=== PATIENT | male | born 1985 | race Caucasian/White ===

== ENCOUNTER 2016-10-05 21:34 | Inpatient (IN) | payer OTHER ==
[~2016-10-05] VITALS: Ht 175.3 cm; Wt 94.0 kg
--- NOTE | ~2016-10-05 | HP ---
Unit #: [id number] #: [id number] Patient: RE BARDALES [id number] [address] [address] [id number] I MR#: [id number] NAME: RE BARDALES ROOM: 570 Age: 31 Sex: M Admission Date: 10/06/2016 : 1985 Attending Physician: Xenia Castaneda M.D. Primary Care Physician: No Primary Care Physician HISTORY AND PHYSICAL CHIEF COMPLAINT Alcohol withdrawal seizures with alcohol withdrawal. HISTORY OF PRESENT ILLNESS This 31-year-old male with a possible heart issue per girlfriend, alcohol abuse, was transferred from [facility] emergency department for alcohol withdrawal seizure and alcohol withdrawal. The patient, himself, is a poor historian. He is still somewhat confused. His girlfriend states that in February he had a seizure. I believe dislocated his arm at that time. Yesterday, he had a seizure, dislocated his arm and went to [facility] emergency department. He was given etomidate to sedate him prior to closed reduction of the left shoulder. The patient had a generalized seizure afterwards. Alcohol level was found to be 39. The patient drinks up to a fifth of alcohol on a daily basis. He then required IV Valium, two doses of IV Ativan, Geodon as well. He was brought to this emergency department where he is in active alcohol withdrawal. Of note, patient was also given Keppra after his seizure. PAST MEDICAL HISTORY 1. Previous seizure x2 or 3 in the past per girlfriend. 2. Some sort of heart issue that was noted during a hospitalization for dislocated jaw, possibly after a seizure. Unknown hospital. We will attempt to get records. FAMILY HISTORY Alzheimer dementia. SOCIAL HISTORY The patient lives with his girlfriend. He, I believe, smokes some tobacco. He drinks up to a fifth daily of alcohol. Except for marijuana, denies other illicit drug use. ALLERGIES None. HOME MEDICATIONS None. REVIEW OF SYSTEMS Difficult to obtain as the patient is a bit confused. PHYSICAL EXAMINATION GENERAL APPEARANCE: Somewhat confused, mildly agitated, 31-year-old male. Unit #: [id number] #: [id number] Patient: RE BARDALES VITAL SIGNS: Prior to transfer, temperature 99.6, pulse 113, blood pressure 146/90, O2 saturation 100% on room air. HEENT: Eyes: PERRLA. Extraocular muscles are intact. Pharynx is benign but patient did bite his tongue earlier. NECK: Supple without adenopathy or thyromegaly. CHEST: Clear. CARDIAC: Slightly tachy S1, S2 without murmur. ABDOMEN: Bowel sounds are present. No hepatosplenomegaly, tenderness or masses. EXTREMITIES: Without clubbing, cyanosis or edema. Pedal pulses are present. NEUROLOGIC: The patient is awake, alert. He seems to be a bit confused, a bit agitated. His cranial nerves are intact. He has equal strength throughout. DIAGNOSTIC STUDIES LABORATORY: Labs prior to transfer: Hematocrit 45.5, normal white count, platelet count. SMA-12: AST 92, ALT 60. Urine tox screen positive for THC. Alcohol level 39. Urinalysis: Specific gravity greater than 1.30, positive protein and ketones. IMAGING: Head CT: No acute disease. CT scan of the abdomen and pelvis: Fatty infiltration of the liver. Lobulated contour of the liver raising the possibility of cirrhosis. CT scan of the C-spine: DJD noted. No fracture. Left shoulder post reduction shows chronic Hill-Sachs deformity of the superolateral aspect of the humeral head unchanged since 02/2016. Chest x-ray: No acute disease. ASSESSMENT 1. Alcohol withdrawal. 2. Alcohol withdrawal seizure. 3. Some sort of heart issue per the girlfriend. 4. Early cirrhosis noted on CT scan. PLAN 1. IV fluids. 2. Benzodiazepines and vitamins. 3. I will continue Keppra pending EEG. The patient received one dose of Keppra at [facility]. If EEG is negative, would discontinue Keppra. 4. Obtain EKG. 5. Recheck labs. 6. We will obtain old records from patient's previous hospitalization when the girlfriend returns with the name of the hospital where the patient was previously admitted. Dictated by Xenia Castaneda M.D. AML/bd TD: 10/06/2016 07:04 JOB #: [id number] Unit #: [id number] #: [id number] Patient: RE BARDALES HISTORY AND PHYSICAL Page 1 of 1 X Xenia Castaneda MD HISTORY AND PHYSICAL
--- NOTE | ~2016-10-05 | CR6 ---
[facility] A Service of [facility] & [facility] RADIOLOGY TEXT RESULTS PATIENT: RE BARDALES LOCATION: [place] [address] : [birth year] UNIT #: [id number] AGE: [address]: Herve Jain MD SEX: M ORDER DR: [id number] [facility] [address] [facility]. [place], [place] [address] [id number] I MR#: [id number] Acc #: [id number] NAME: RE BARDALES : 1985 SEX: M STUDY DATE/TIME: 10/09/2016 12:11 UNIT: [facility] ROOM: [facility] STUDY DESCRIPTION: CR Abdomen Portable Sng View Attending Physician: Herve Jain M.D. Ordering Physician: Santa Mcdaniel M.D. Primary Care Physician: No Primary Care Physician MEDICAL IMAGING REPORT This report is preliminary unless electronic signature is present EXAM Portable abdomen, 10/09/2016. HISTORY Feeding difficulty abdomen pain since 10/05/2016. Dobbhoff tube placement. FINDINGS The tip of the Dobbhoff tube is located in the gastric fundus directed cephalad. Dictated by... Juan Francisco Loams M.D. THIS IS AN ELECTRONICALLY VERIFIED REPORT Juan Francisco Lomas M.D. at 10/10/2016 6:37 AM KARIN/blade TD: 10/09/2016 16:32 JOB #: [id number] MEDICAL IMAGING REPORT Page 1 of 1 COPY
--- NOTE | ~2016-10-05 | CR63 ---
[facility] A Service of [facility] & [facility] RADIOLOGY TEXT RESULTS PATIENT: RE BARDALES LOCATION: [facility] 303-01 : [birth year] UNIT #: [id number] AGE: [address]: Osvaldo Iglesias MD SEX: M ORDER DR: [id number] [place] [id number] [facility]. [place], [place] [address] [id number] I MR#: [id number] Acc #: [id number] NAME: RE BARDALES : 1985 SEX: M STUDY DATE/TIME: 10/12/2016 16:03 [facility] ROOM: 303 STUDY DESCRIPTION: CR Chest 2 View Attending Physician: Osvaldo Iglesias M.D. Ordering Physician: Osvaldo Iglesias M.D. Primary Care Physician: No Primary Care Physician MEDICAL IMAGING REPORT This report is preliminary unless electronic signature is present EXAM PA and lateral chest, 10/12. INDICATIONS Cough and shortness of air for 4 days. COMPARISON 10/10. FINDINGS PA and lateral views of the chest were obtained. The heart size and vascularity are normal. Lungs are clear. The PIC catheter has its tip in the superior vena cava. Bones are unremarkable. IMPRESSION No active disease. Dictated by... Uriel Stokes M.D. THIS IS AN ELECTRONICALLY VERIFIED REPORT Uriel Stokes M.D. at 10/13/2016 7:21 AM MATT/willis TD: 10/13/2016 06:22 JOB #: [id number] MEDICAL IMAGING REPORT Page 1 of 1 COPY
--- NOTE | ~2016-10-05 | EKG ---
PATIENT: RE BARDALES UNIT #: [id number] Ventricular Rate: 105 BPM Atrial Rate: 105 BPM P-R Interval: 134 ms QRS Duration: 92 ms Q-T Interval: 360 ms QTC Calculation(Bezet): 475 ms P [place]: 48 degrees Calculated R [place]: 10 degrees Calculated T [place]: 4 degrees Diagnosis Line: Sinus tachycardia Diagnosis Line: Voltage criteria for left ventricular hypertrophy Diagnosis Line: Abnormal ECG Diagnosis Line: No previous ECGs available Diagnosis Line: Confirmed by JUAN LEDBETTER MD ([id number]) on Diagnosis Line: 10/07/2016 4:35:05 PM INTERPRETING MD: PRIYANK
--- NOTE | ~2016-10-05 | A ---
[facility] Nutrition Therapy DATE: 10/10/16 Patient: RE HIKCS CATIA Physician: AWILDA Address: [address] [facility] Room/Bed: [address], Zip: [place] [address] Admit Date: 10/06/16 Date of : [birth year] Height: 5 9 Weight: 224 102 NUTRITIONAL ASSESSMENT: REASON: Enteral nutrition diet order Admitting dx: 31 y/o male admitted with ETOH withdrawal seizures PMH: ETOH abuse, ?CAD, dislocated jaw, smoker Anthropometrics: Ht: 69", admission wt: 94.5 kg, current wt: 102 kg, BMI: 30 (stage I obese; based on admission wt) Labs: AST 63 Meds: Thiamine, folic acid, therapeutic formula, Mgso4, Kcl, D5 1/2 NS @ 100 ml/hr, precedex drip, zofran prn, pepcid I/O & Bowel function: Last BM unknown Skin Integrity: No issues, generalized edema noted Estimated Nutrition Needs: 4580-2768 kcals/day (20-25 kcals/kg admission wt) 113-132 g protein/day (1.2-1.4 g/kg admission wt) Fluids consistent with kcal needs or per MD Assessment: Chart reviewed, events noted. See admitting dx and PMH as stated above. Patient has daily ETOH abuse with resulting seizures. CT scan showed early cirrhosis. Patient was transferred to ICU from [facility] on Monday, 10/08. At that time he was on a regular diet. RD currently assessing due to recent DHT placement and EN order (Jevity 1.2 @ 15 ml/hr). DHT placed due to lack of PO intake and worsening mental status with increased lethargy. Patient not appropriate for PO intake at this time. Of note, he has increased nutrient needs in the setting of cirrhosis. He is currently on 2L nasal cannula. See RD recs below, will follow hospital course. Dx: Inadequate protein energy intake r/t nutrition not yet initiated AEB NPO, DHT placement, need for EN. Intervention: EN recs as stated below Monitoring, Evaluation and Goals: 1. EN consistent with estimated nutritional needs (tolerate @ goal rate). 2. Labs WNL. [facility] Nutrition Therapy DATE: 10/10/16 Patient: RE BARDALES Physician: AWILDA Address: [facility] [facility] Room/Bed: [address], Zip: [place] [address] Admit Date: 10/06/16 Date of : [birth year] Height: 5 9 Weight: 224 102 3. Promote regular GI fx. Monitor: per protocol, criteria to determine if above goals met Recommendations: 1. Once medically feasible start enteral nutrition with Jevity 1.5 @ 20 ml/hr and increase by 10 ml q 6 hours until goal rate of 65 ml/hr is reached. Please order 30 ml Prostat daily to be given via tube. This nutrition regimen will provide 1590 ml, 2440 kcals, 115 g protein and 1186 ml water. Add free water flushes per MD once at goal rate and hold liquids IVF. 2. PO diet per [employer] once appropriate with no other dietary restrictions. 3. Daily weights. RD will follow Moderate-severe nutrition risk Respectfully, Gely Devine, TARIK, LD [employer] cc: client file
--- NOTE | ~2016-10-05 | CR72 ---
[facility] A Service of [facility] RADIOLOGY TEXT RESULTS PATIENT: RE BARDALES LOCATION: [address] : [birth year] UNIT #: [id number] AGE: [address]: Osvaldo Iglesias MD SEX: M ORDER DR: [id number] [place] [address] [place], [place] [address] [id number] I MR#: [id number] Acc #: [id number] NAME: RE BARDALES : 1985 SEX: M STUDY DATE/TIME: 10/10/2016 0:58 UNIT: [facility] ROOM: [facility] STUDY DESCRIPTION: CR Chest Single View Portable Attending Physician: Osvaldo Iglesias M.D. Ordering Physician: Herve Jain M.D. Primary Care Physician: Primary Care Physician No MEDICAL IMAGING REPORT This report is preliminary unless electronic signature is present EXAM Portable chest INDICATION Dobbhoff tube placement. Shortness of air today. PROCEDURE Frontal view of the chest. COMPARISON 10/09/2016. FINDINGS Tip of the Dobbhoff tube is just inferior to the jhonathan. There is a right approach PICC line that terminates just inside the right atrium. No pneumothorax. IMPRESSION 1. Tip of the Dobbhoff tube just inferior to the jhonathan. 2. Right approach PICC line is just inside the right atrium. Dictated by... Foster Rockwell M.D. THIS IS AN ELECTRONICALLY VERIFIED REPORT Foster Rockwell M.D. at 10/10/2016 10:07 PM BRIGID/gumaro TD: 10/10/2016 07:26 JOB #: [id number] MEDICAL IMAGING REPORT [facility] A Service [facility] RADIOLOGY TEXT RESULTS PATIENT: RE BARDALES LOCATION: [address] : [birth year] UNIT #: [id number] AGE: [address]: Osvaldo Iglesias MD SEX: M ORDER DR: Page 1 of 1 COPY
--- NOTE | ~2016-10-05 | CO ---
Unit #: [id number] #: [id number] Patient: RE BARDALES [id number] [address] [address] [id number] I MR#: [id number] NAME: RE BARDALES ROOM: [facility] Age: 31 Sex: M Admission Date: 10/06/2016 : 1985 Attending Physician: Osvaldo Iglesias M.D. Consultation Date: 10/09/2016 CONSULTATION REPORT REASON FOR CONSULT ICU management. CHIEF COMPLAINT Alcohol withdrawal with seizure. HISTORY OF PRESENT ILLNESS This is a 31-year-old male with a past medical history significant for questionable heart disease of unclear etiology and alcohol abuse who presented to the emergency room at [facility] with a seizure and alcohol withdrawal symptoms. Patient currently is on Precedex and unable to provide any history. Per the medical records, patient had a seizure yesterday which was complicated with dislocated left arm. Patient normally drinks up to a fifth of alcohol on a daily basis. In the emergency room, apparently patient was severely agitated requiring multiple and various medications including Geodon, Ativan, and valium. No reported fever or chills. REVIEW OF SYSTEMS Unable to obtain. PAST MEDICAL HISTORY 1. Seizures. 2. Alcohol abuse. 3. Cardiac issues but unclear. PAST SURGICAL HISTORY None. FAMILY HISTORY Alzheimer dementia. SOCIAL HISTORY Patient lives with his girlfriend. He smokes tobacco, and he drinks up to a fifth daily of alcohol. He smokes marijuana. ALLERGIES No known drug allergies. HOME MEDICATIONS None. PHYSICAL EXAMINATION GENERAL: Patient currently is lethargic on Precedex drip. Unit #: [id number] #: [id number] Patient: RE BARDALES HEENT: Atraumatic and normocephalic. PERRLA. EOMI. NECK: Supple. No JVD. No lymphadenopathy. CLEAR: Fine rhonchi at the bases. HEART: S1 and S2. No murmur, gallops, or rubs. ABDOMEN: Soft and nontender. Bowel sounds positive. No hepatosplenomegaly. EXTREMITIES: No edema or cyanosis. SKIN: No rashes. CENTRAL NERVOUS SYSTEM: Lethargic, but he is moving all extremities. He is not following any commands. DIAGNOSTIC STUDIES LABORATORY: Creatinine 0.7, potassium 3.3. White blood count 6.2. INR 1.1. ASSESSMENT 1. Alcohol withdrawal. 2. Seizure secondary to alcohol withdrawal. 3. Hepatic cirrhosis. 4. Hypokalemia. 5. Smoking. PLAN 1. Patient will be continued on Precedex drip, but we will wean down as tolerated. 2. Will add clonidine to minimize Precedex drip. 3. Bronchodilator as needed and follow up for any possible infection like bronchitis. 4. IV hydration and multivitamin. 5. DVT prophylaxis. I would like to thank Dr. Mcdaniel for allowing me to be part of this patient's care. Dictated by... Lucita Greenfield TD: 10/10/2016 10:33 JOB #: [id number] CONSULTATION REPORT Page 1 of 1 X AUGIE BATISTA MD CONSULTATION REPORT
--- NOTE | ~2016-10-05 | CR7 ---
[facility] A Service of [facility] & [facility] RADIOLOGY TEXT RESULTS PATIENT: RE BARDALES LOCATION: [place] [address] : [birth year] UNIT #: [id number] AGE: [address]: Osvaldo Iglesias MD SEX: M ORDER DR: [id number] [place] [id number] [place], [place] [address] [id number] I MR#: [id number] Acc #: [id number] NAME: RE BARDALES : 1985 SEX: M STUDY DATE/TIME: 10/10/2016 3:25 UNIT: [facility] ROOM: [facility] STUDY DESCRIPTION: CR Abdomen Single AP View Attending Physician: Osvaldo Iglesias M.D. Ordering Physician: Herve Jain M.D. Primary Care Physician: Primary Care Physician No MEDICAL IMAGING REPORT This report is preliminary unless electronic signature is present EXAM Abdominal radiograph INDICATION Dobbhoff tube placement. Generalized abdominal pain today. PROCEDURE Supine view of the abdomen. COMPARISON 10/09/2016 at 1211 hours. FINDINGS The tip of the Dobbhoff tube is stable positioned at the fundus of the stomach. IMPRESSION Tip of the Dobbhoff tube in the fundus of the stomach unchanged from the prior. Dictated by... Foster Rockwell M.D. THIS IS AN ELECTRONICALLY VERIFIED REPORT Foster Rockwell M.D. at 10/10/2016 10:07 PM BRIGID/gumaro TD: 10/10/2016 08:37 JOB #: [id number] MEDICAL IMAGING REPORT Page 1 of 1 COPY
--- NOTE | ~2016-10-05 | CR72 ---
[facility] A Service of [facility] & [facility] RADIOLOGY TEXT RESULTS PATIENT: RE BARDALES LOCATION: [address] : [birth year] UNIT #: [id number] AGE: [address]: Herve Jain MD SEX: M ORDER DR: [id number] [facility] [address] [facility]. [place], [place] [address] [id number] I MR#: [id number] Acc #: [id number] NAME: RE BARDALES : 1985 SEX: M STUDY DATE/TIME: 10/09/2016 12:03 UNIT: [facility] ROOM: [facility] STUDY DESCRIPTION: CR Chest Single View Portable Attending Physician: Herve Jain M.D. Ordering Physician: Santa Mcdaniel M.D. Primary Care Physician: No Primary Care Physician MEDICAL IMAGING REPORT This report is preliminary unless electronic signature is present EXAM Portable chest, 10/09/2016. HISTORY Feeding difficulty, Dobbhoff tube placement, abdominal pain since 10/05/2016. FINDINGS Two views of the chest were obtained. The first radiograph shows the Dobbhoff tube to be coiled within the esophagus with the tip directed cephalad near the thoracic inlet. The second radiograph shows the tip of the Dobbhoff tube to be located in the gastric fundus directed cephalad. Dictated by... Juan Francisco Lomas M.D. THIS IS AN ELECTRONICALLY VERIFIED REPORT Juan Francisco Lomas M.D. at 10/10/2016 6:37 AM KARIN/blade TD: 10/09/2016 16:30 JOB #: [id number] MEDICAL IMAGING REPORT Page 1 of 1 COPY
--- NOTE | ~2016-10-05 | CR170 ---
[facility] A Service of [facility] & [facility] RADIOLOGY TEXT RESULTS PATIENT: RE BARDALES LOCATION: [place] [address] : [birth year] UNIT #: [id number] AGE: [address]: Herve Jain MD SEX: M ORDER DR: [id number] [place] [address] [place], [place] [address] [id number] I MR#: [id number] Acc #: [id number] NAME: RE BARDALES : 1985 SEX: M STUDY DATE/TIME: 10/09/2016 12:12 UNIT: [facility] ROOM: [facility] STUDY DESCRIPTION: CR Knee 2 Views Rt Attending Physician: Herve Jain M.D. Ordering Physician: Santa Mcdaniel M.D. Primary Care Physician: No Primary Care Physician MEDICAL IMAGING REPORT This report is preliminary unless electronic signature is present EXAM Right knee, 2 views, 10/09/2016. HISTORY Right knee pain status post fall 10/05/2016. FINDINGS AP and lateral projection of the knee shows smooth articular anatomy without indication of fracture or dislocation at the major weight-bearing surface of the knee. There is no indication of radiopaque foreign body about the knee surface or joint effusion. IMPRESSION Normal knee. Dictated by... Juan Francisco Lomas M.D. THIS IS AN ELECTRONICALLY VERIFIED REPORT Juan Francisco Lomas M.D. at 10/10/2016 6:37 AM KARIN/blade TD: 10/09/2016 16:45 JOB #: [id number] MEDICAL IMAGING REPORT Page 1 of 1 COPY
[2016-10-06 07:22] LABS: BASOPHIL% 0.6 % (0-2.5); EOSINOPHIL% 0.5 % (0.0-7.0); HEMATOCRIT 41.9 % (38.0-50.0); HEMOGLOBIN 14.4 gm/dL (13.0-16.0); LYMPHOCYTE# 0.6 X10e3 (1.0-3.5); LYMPHOCYTE% 7.4 % (17.0-45.0); MEAN CELL VOLUME 98.3 FL (83-96); MEAN CORPUSCULAR HEMOGLOBIN 33.8 PG (28-34); MEAN CORPUSCULAR HGB CONC 34.4 g/dL (30-36); MEAN PLATELET VOLUME 8.5 FL (6.5-11.5); MONOCYTE# 0.8 X10e3 (0-1.0); NEUTROPHIL# 6.2 X10e3 (1.5-7.1); NEUTROPHIL% 81.5 % (40-75); PLATELET COUNT 102 X10e3 (140-420); RED BLOOD COUNT 4.27 X10e (3.90-5.60); RED CELL DISTRIBUTION WIDTH 13.4 % (11.0-15.5); WHITE BLOOD COUNT 7.6 X10e3 (4.0-10.5)
[2016-10-06 07:26] LABS: INR 1.1; PARTIAL THROMBOPLASTIN TIME 26.6 SECONDS (23.5-31.3); PROTHROMBIN TIME (PATIENT) 11.6 SECONDS (10.0-11.7)
[2016-10-06 07:28] LABS: DIFF IND NO
[2016-10-06 07:39] LABS: ALBUMIN SERUM 4.2 g/dL (3.5-5.0); BILIRUBIN,TOTAL 1.6 mg/dL (0.2-2.0); BUN/CREATININE RATIO 5.55; CALCIUM SERUM 8.5 mg/dL (8.4-10.2); CREATININE SERUM 0.9 mg/dL (0.6-1.4); GLOM FILT RATE Estimated 112.6 mL/min (>60); MAGNESIUM 1.6 mg/dL (1.6-3.0); POTASSIUM 3.2 mmol/L (3.5-5.1)
[2016-10-07 13:44] LABS: HEMATOCRIT 43.4 % (38.0-50.0); MEAN CELL VOLUME 98.2 FL (83-96); MEAN CORPUSCULAR HGB CONC 34.6 g/dL (30-36); MEAN PLATELET VOLUME 7.7 FL (6.5-11.5); RED BLOOD COUNT 4.41 X10e (3.90-5.60); RED CELL DISTRIBUTION WIDTH 12.9 % (11.0-15.5); WHITE BLOOD COUNT 6.2 X10e3 (4.0-10.5)
[2016-10-07 14:14] LABS: BUN/CREATININE RATIO 7.14; CALCIUM SERUM 8.7 mg/dL (8.4-10.2); CREATININE SERUM 0.7 mg/dL (0.6-1.4); GLOM FILT RATE Estimated 124.9 mL/min (>60); MAGNESIUM 1.8 mg/dL (1.6-3.0); POTASSIUM 3.1 mmol/L (3.5-5.1)
[2016-10-08 02:57] LABS: HEMATOCRIT 43.4 % (38.0-50.0); MEAN CELL VOLUME 98.2 FL (83-96); MEAN CORPUSCULAR HEMOGLOBIN 33.9 PG (28-34); MEAN CORPUSCULAR HGB CONC 34.5 g/dL (30-36); MEAN PLATELET VOLUME 8.8 FL (6.5-11.5); RED BLOOD COUNT 4.43 X10e (3.90-5.60); WHITE BLOOD COUNT 7.8 X10e3 (4.0-10.5)
[2016-10-08 03:22] LABS: ALBUMIN SERUM 4.2 g/dL (3.5-5.0); BUN/CREATININE RATIO 6.25; CALCIUM SERUM 9.1 mg/dL (8.4-10.2); CREATININE SERUM 0.8 mg/dL (0.6-1.4); GLOM FILT RATE Estimated 118.2 mL/min (>60); MAGNESIUM 1.7 mg/dL (1.6-3.0); POTASSIUM 3.7 mmol/L (3.5-5.1); PROTEIN TOTAL SERUM 7.8 g/dL (6.0-8.3)
[2016-10-08 19:57] LABS: BUN/CREATININE RATIO 8.75; CALCIUM SERUM 9.2 mg/dL (8.4-10.2); CREATININE SERUM 0.8 mg/dL (0.6-1.4); GLOM FILT RATE Estimated 118.2 mL/min (>60); POTASSIUM 3.1 mmol/L (3.5-5.1)
[2016-10-09 05:34] LABS: BASOPHIL# 0.1 X10e3 (0-0.3); BASOPHIL% 0.9 % (0-2.5); EOSINOPHIL# 0.2 X10e3 (0-0.7); EOSINOPHIL% 3.3 % (0.0-7.0); HEMATOCRIT 44.4 % (38.0-50.0); HEMOGLOBIN 15.3 gm/dL (13.0-16.0); LYMPHOCYTE# 0.9 X10e3 (1.0-3.5); LYMPHOCYTE% 14.6 % (17.0-45.0); MEAN CELL VOLUME 98.9 FL (83-96); MEAN CORPUSCULAR HGB CONC 34.4 g/dL (30-36); MEAN PLATELET VOLUME 7.6 FL (6.5-11.5); MONOCYTE# 0.9 X10e3 (0-1.0); MONOCYTE% 13.8 % (3.0-12.0); NEUTROPHIL# 4.2 X10e3 (1.5-7.1); NEUTROPHIL% 67.4 % (40-75); PLATELET COUNT 145 X10e3 (140-420); RED BLOOD COUNT 4.49 X10e (3.90-5.60); WHITE BLOOD COUNT 6.2 X10e3 (4.0-10.5)
[2016-10-09 05:39] LABS: DIFF IND NO
[2016-10-09 06:27] LABS: BUN/CREATININE RATIO 8.57; CALCIUM SERUM 9.1 mg/dL (8.4-10.2); CREATININE SERUM 0.7 mg/dL (0.6-1.4); GLOM FILT RATE Estimated 124.9 mL/min (>60); MAGNESIUM 1.9 mg/dL (1.6-3.0); PHOSPHOROUS 3.6 mg/dL (2.5-4.6); POTASSIUM 3.3 mmol/L (3.5-5.1)
[2016-10-09 23:48] LABS: ARTERIAL BLD GAS O2 SATURATION 92.8 % (90.0-100.0); ARTERIAL BLOOD GAS HCO3 23.9 mmol/L; ARTERIAL BLOOD GAS MET HB 0.7 %sat (0.0-2.0); ARTERIAL BLOOD GAS PO2 81.1 mmHg (80.0-100); ARTERIAL BLOOD GAS pH 7.237 (7.350-7.450)
[2016-10-09 23:49] LABS: ARTERIAL BLOOD GAS ALLEN TEST NORMAL; ARTERIAL BLOOD GAS ART SITE RIGHT RADIAL; ARTERIAL BLOOD GAS DELIVERY NASAL CANNULA; ARTERIAL BLOOD GAS PCO2 56.2 mmHg (35.0-45.0); ARTERIAL DRAW? YES
[2016-10-10 06:42] LABS: HEMATOCRIT 42.2 % (38.0-50.0); HEMOGLOBIN 14.4 gm/dL (13.0-16.0); MEAN CELL VOLUME 98.2 FL (83-96); MEAN CORPUSCULAR HEMOGLOBIN 33.4 PG (28-34); MEAN PLATELET VOLUME 7.8 FL (6.5-11.5); RED BLOOD COUNT 4.3 X10e (3.90-5.60); RED CELL DISTRIBUTION WIDTH 12.9 % (11.0-15.5); WHITE BLOOD COUNT 6.6 X10e3 (4.0-10.5)
[2016-10-10 07:15] LABS: ALBUMIN SERUM 3.7 g/dL (3.5-5.0); ALKALINE PHOSPHATASE 50 U/L (32-92); ALT (SGPT) 31 U/L (10-40); AST (SGOT) 63 U/L (10-42); BILIRUBIN,TOTAL 0.9 mg/dL (0.2-2.0); BLOOD UREA NITROGEN <5 mg/dL (9-23); BUN/CREATININE RATIO 7.14; CARBON DIOXIDE 22 mmol/L (22-31); CHLORIDE 108 mmol/L (100-111); CREATININE SERUM 0.7 mg/dL (0.6-1.4); GLOM FILT RATE Estimated 124.9 mL/min (>60); GLUCOSE FASTING 104 mg/dL (70-110); POTASSIUM 3.7 mmol/L (3.5-5.1); PROTEIN TOTAL SERUM 6.9 g/dL (6.0-8.3); SODIUM 140 mmol/L (135-145)
[2016-10-10 07:22] LABS: MAGNESIUM 1.7 mg/dL (1.6-3.0); PHOSPHOROUS 2.5 mg/dL (2.5-4.6)
[2016-10-10 07:40] LABS: PROCALCITONIN <0.05 NG/ML
[2016-10-10 18:53] LABS: URINE APPEARANCE CLEAR; URINE BILIRUBIN NEG (NEG); URINE BLOOD 2+ (NEG); URINE COLOR DK YELLOW; URINE GLUCOSE NEG (NEG); URINE KETONE 1+ (NEG); URINE LEUKOCYTE ESTERASE NEG (NEG); URINE NITRATE NEG (NEG); URINE PH 5.5 (5-8); URINE PROTEIN NEG (NEG); URINE SPECIFIC GRAVITY 1.023 (1.003-1.035)
[2016-10-10 18:56] LABS: URINE BACTERIA AUWI NEG (NEGATIVE); URINE SQUAMOUS EPITHELIAL CELL NONE SEEN /[HPF]
[2016-10-11 04:18] LABS: HEMOGLOBIN 13.5 gm/dL (13.0-16.0); MEAN CELL VOLUME 98.4 FL (83-96); MEAN CORPUSCULAR HEMOGLOBIN 33.2 PG (28-34); MEAN CORPUSCULAR HGB CONC 33.8 g/dL (30-36); MEAN PLATELET VOLUME 7.6 FL (6.5-11.5); RED BLOOD COUNT 4.07 X10e (3.90-5.60); RED CELL DISTRIBUTION WIDTH 12.9 % (11.0-15.5)
[2016-10-11 04:43] LABS: BLOOD UREA NITROGEN <5 mg/dL (9-23); BUN/CREATININE RATIO 7.14; CALCIUM SERUM 8.8 mg/dL (8.4-10.2); CARBON DIOXIDE 24 mmol/L (22-31); CHLORIDE 104 mmol/L (100-111); CREATININE SERUM 0.7 mg/dL (0.6-1.4); GLOM FILT RATE Estimated 124.9 mL/min (>60); GLUCOSE FASTING 112 mg/dL (70-110); MAGNESIUM 1.7 mg/dL (1.6-3.0); PHOSPHOROUS 3.4 mg/dL (2.5-4.6); POTASSIUM 3.4 mmol/L (3.5-5.1); SODIUM 136 mmol/L (135-145)
[2016-10-12 05:21] LABS: BASOPHIL# 0.1 X10e3 (0-0.3); EOSINOPHIL# 0.2 X10e3 (0-0.7); EOSINOPHIL% 3.5 % (0.0-7.0); HEMOGLOBIN 14.2 gm/dL (13.0-16.0); LYMPHOCYTE# 0.9 X10e3 (1.0-3.5); LYMPHOCYTE% 16.7 % (17.0-45.0); MEAN CELL VOLUME 98.2 FL (83-96); MEAN CORPUSCULAR HEMOGLOBIN 33.9 PG (28-34); MEAN CORPUSCULAR HGB CONC 34.6 g/dL (30-36); MONOCYTE# 0.9 X10e3 (0-1.0); MONOCYTE% 17.2 % (3.0-12.0); NEUTROPHIL# 3.3 X10e3 (1.5-7.1); NEUTROPHIL% 61.6 % (40-75); PLATELET COUNT 212 X10e3 (140-420); RED BLOOD COUNT 4.18 X10e (3.90-5.60); RED CELL DISTRIBUTION WIDTH 12.6 % (11.0-15.5); WHITE BLOOD COUNT 5.4 X10e3 (4.0-10.5)
[2016-10-12 05:26] LABS: DIFF IND NO
[2016-10-12 05:54] LABS: CALCIUM SERUM 9.1 mg/dL (8.4-10.2); CARBON DIOXIDE 22 mmol/L (22-31); CHLORIDE 104 mmol/L (100-111); CREATININE SERUM 0.7 mg/dL (0.6-1.4); GLOM FILT RATE Estimated 124.9 mL/min (>60); GLUCOSE FASTING 98 mg/dL (70-110); MAGNESIUM 1.9 mg/dL (1.6-3.0); POTASSIUM 4.2 mmol/L (3.5-5.1); SODIUM 137 mmol/L (135-145)
[2016-10-12 06:01] LABS: BLOOD UREA NITROGEN <5 mg/dL (9-23); BUN/CREATININE RATIO 7.14
[2016-10-13 06:38] LABS: HEMATOCRIT 42.4 % (38.0-50.0); HEMOGLOBIN 14.9 gm/dL (13.0-16.0); MEAN CELL VOLUME 98.1 FL (83-96); MEAN CORPUSCULAR HEMOGLOBIN 34.4 PG (28-34); MEAN CORPUSCULAR HGB CONC 35.1 g/dL (30-36); MEAN PLATELET VOLUME 7.7 FL (6.5-11.5); RED BLOOD COUNT 4.32 X10e (3.90-5.60); RED CELL DISTRIBUTION WIDTH 12.6 % (11.0-15.5); WHITE BLOOD COUNT 5.7 X10e3 (4.0-10.5)
== END 2016-10-14 14:48 | disposition home or self-care (01) | DRG 896 ==
LOC: C5C 10-06 00:10 → CICCU2 10-06 00:10 → C5C 10-06 00:58 → C5B 10-07 21:20 → CICCU2 10-07 23:49 → C3A PCU 10-11 19:52
PROVIDERS: Internal Medicine; Internal Medicine Pulmonary Disease
PROC: 02HV33Z Insertion of Infusion Device into Superior Vena Cava, Percutaneous Approach (ICD-10-PCS; principal; 2016-10-09)
PROC: 4A02X4A Measurement of Cardiac Electrical Activity, Guidance, External Approach (ICD-10-PCS; 2016-10-09)
DX: F10.231 Alcohol dependence with withdrawal delirium (principal); J96.01 Acute respiratory failure with hypoxia; E87.2 Acidosis; D69.6 Thrombocytopenia, unspecified; R65.10 Systemic inflammatory response syndrome (SIRS) of non-infectious origin without acute organ dysfunction; J96.02 Acute respiratory failure with hypercapnia; K70.30 Alcoholic cirrhosis of liver without ascites; R13.10 Dysphagia, unspecified; G40.89 Other seizures; Y90.1 Blood alcohol level of 20-39 mg/100 ml; F17.200 Nicotine dependence, unspecified, uncomplicated; K76.0 Fatty (change of) liver, not elsewhere classified; R74.0 Nonspecific elevation of levels of transaminase and lactic acid dehydrogenase [LDH]; E87.6 Hypokalemia; S43.005D Unspecified dislocation of left shoulder joint, subsequent encounter; X58.XXXD Exposure to other specified factors, subsequent encounter; M25.461 Effusion, right knee; R00.0 Tachycardia, unspecified; G47.33 Obstructive sleep apnea (adult) (pediatric)
CPT/HCPCS: 36600; 71010; 71020; 73560; 74000; 80048; 80053; 81003; 82308; 82803; 83735; 84100; 84132; 85025; 85027; 85610; 85730; 87070; 87077; 87186; 87205; 92526; 92610; 93005; 94640; 94660; 94760; 94761; 97110; 97116; 97161; 97166; 97530; 97535; G8978-GP; G8979-GP; G8980-GP; G8987-GO; G8988-GO; G8996-GN; G8997-GN; G8998-GN; J1650; J1885; J1953; J2060; J2405; J3411; J3475; J3486